=== PATIENT | male | born 1935 | race Caucasian/White ===

== ENCOUNTER 2016-06-12 10:59 | Emergency (ER) | payer MEDICARE, BC ==
[~2016-06-12] VITALS: Ht 177.8 cm; Wt 109.1 kg
[2016-06-12 11:02] VITALS: BP 180/133; TEMP 97.6
[2016-06-12] MEDS ORDERED: TOPROL XL 25MG25 MG PO (11:17)
[2016-06-12] MEDS ORDERED: HCTZ 25MG TAB25 MG PO (11:18)
[2016-06-12] MEDS ORDERED: ASPIRIN E.C. 8181 MG PO (11:18)
[2016-06-12] MEDS ORDERED: FAMVIR 500500 MG/TAB PO (12:12)
[2016-06-12] MEDS ORDERED: PREDNISONE20 MG PO (12:12)
[2016-06-12 12:46] VITALS: PULSE 93
== END 2016-06-12 12:46 | disposition home or self-care (01) ==
LOC: COL.ER 10:59
DX: G51.0 Bell's palsy (principal)
CPT/HCPCS: J7512

== ENCOUNTER 2021-10-20 13:25 | Emergency (ER) | payer MEDICARE, BC ==
[~2021-10-20] VITALS: Ht 177.8 cm; Wt 98.2 kg
[~2021-10-20 13:25] MED LIST: ASPIRIN E.C. 8181 MG PO; FAMVIR 500500 MG/TAB PO; HCTZ 25MG TAB25 MG PO; PREDNISONE20 MG PO; TOPROL XL 25MG25 MG PO
[2021-10-20 13:37] VITALS: TEMP 97.7
[2021-10-20 14:05] LABS: HEMATOCRIT 43.5 % (42.0-52.0); HEMOGLOBIN 15.4 g/dl (13.5-18.0); MEAN CELL VOLUME 97 fl (80.0-100.0); MEAN CORPUSCULAR HEMOGLOBIN 35 pg (27-31); MEAN CORPUSCULAR HGB CONC 35 g/dl (33.0-37.0); MEAN PLATELET VOLUME 10.7 fl (7.4-10.4); PLATELET COUNT 155 K/mm3 (130-400); RED BLOOD COUNT 4.47 M/mm3 (4.20-5.60); REDCELL DISTRIBUTION WIDTH-CV 12.4 % (11.5-14.5)
[2021-10-20 14:16] LABS: INR 1.2 (0.8-3.0); PROTHROMBIN TIME 13.3 SECONDS (9.7-12.8)
[2021-10-20 14:36] LABS: EOSINOPHIL 1 % (0-4); LYMPHOCYTE 53 % (20.0-51.0); METAMYELOCYTE 1 % (0-0); NEUTROPHILS 42 % (42.0-75.2); PLATELET ESTIMATE NORMAL (NORMAL)
[2021-10-20 14:50] LABS: ALBUMIN 3.9 gm/dL (3.4-4.8); BILIRUBIN,TOTAL 1.9 mg/dL (0.2-1.2); C-REACTIVE PROTEIN 0.21 mg/dL (0.00-0.50); CREATININE, serum 0.92 mg/dL (0.72-1.25); POTASSIUM 3.6 mmol/L (3.5-4.5); TOTAL PROTEIN 6.4 gm/dL (6.2-8.1)
[2021-10-20 16:10] VITALS: BP 159/104; PULSE 61
[2021-10-21 08:49] LABS: PATHOLOGY DIFF REVIEW OK +
== END 2021-10-20 16:11 | disposition home or self-care (01) ==
LOC: COL.ER 13:25
PROVIDERS: Family Medicine
DX: H83.01 Labyrinthitis, right ear (principal); Z28.310 Unvaccinated for COVID-19
CPT/HCPCS: J7120